=== PATIENT | female | born 1945 | race Caucasian/White ===

== ENCOUNTER → 2017-04-05 | Outpatient (CLI) | payer MEDICARE, OTHER ==
[~2017-04-05] MED LIST: ALLEGRA PO; ALLEGRA180 MG PO; ASPIRIN PO; ATENOLOL PO; ATENOLOL25 MG PO; ATIVAN0.5 M1 PO; CALCIUM 500 +1 EAC2 PO; CALCIUM500 MG PO; CIPRO PO; COD LIVER OIL1 CAP; DOC-Q-LACE100 MG PO; DULERA 100 MCG/13 GM IH; FLONASE ALLERG9.9 ML; FLONASE16 GM; IRON; KEFLEX500 M1 PO; LIDODERM30 EA TOP; LODINE PO; LORTAB 10-3251 EACH PO; LORTAB 101 TAB 10/5 PO; LORTAB 7.5-5001 TAB PO; LOW DOSE ASPIRI81 M1 PO; MULTI VITAMIN1 EACH PO; MULTI-VITAMIN1 TAB PO; NEXIUM PO; OYSTER CALCIUM500 MG PO; PRAVASTATIN SOD40 MG PO; PROAIR HFA8.5 GM INH; PYRIDOXINE; SENOKOT S1 TA1 PO; THERALITH XR T1 EACH PO; TUDORZA PRESS400 MCG IH; VIT E PO; VITAMIN D350000 UNIT PO; VITAMIN E400 UNI5 PO; ZYRTEC10 M2 PO
--- NOTE | ~2017-04-05 | BD1 ---
[facility] A Service of [facility] RADIOLOGY TEXT RESULTS PATIENT: BUZZ POOL LOCATION: [facility] : [birth year] UNIT #: [id number] AGE: [address]: Layne Mascorro MD SEX: F ORDER DR: [id number] [facility] [address] [place], [place] [address] [id number] O MR#: [id number] Acc #: [id number] NAME: BUZZ POOL : 1945 SEX: F STUDY DATE/TIME: 04/05/2017 10:09 UNIT: [facility] ROOM: STUDY DESCRIPTION: BD Dexa Bone Dens 1+ Site Attending Physician: Layne Mascorro M.D. Referring Physician: Layne Mascorro M.D. Ordering Physician: Layne Mascorro M.D. Primary Care Physician: Layne Mascorro M.D. MEDICAL IMAGING REPORT This report is preliminary unless electronic signature is present EXAM DXA scan 04/05/2017 HISTORY Status post menopause with no hormone replacement therapy. Osteopenia. Hysterectomy with removal of both ovaries. Arthritis. Smoking history for 35 years. FINDINGS Bone mineral density in the lumbar spine from L1-L4 was 1.256 g/cm2 which is 1.9 standard deviations above the mean when compared to the young adult reference population which is within the range of normal. This is 4 standard deviations above the mean when compared to the age-matched population. Bone mineral density in the left hip was 0.845 g/cm2 which is 0.8 standard deviations below the mean when compared to the young adult reference population which is within the range of normal. This is 0.7 standard deviations above the mean when compared to the age-matched population. IMPRESSION Bone mineral density in the lumbar spine and the left hip within the range of normal. Dictated by... Leonardo Jacobsen M.D. THIS IS AN ELECTRONICALLY VERIFIED REPORT Leonardo Jacobsen M.D. at 04/06/2017 2:36 PM AUBREY/christopher TD: 04/05/2017 15:39 JOB #: [id number] [facility] A Service of [facility] RADIOLOGY TEXT RESULTS PATIENT: BUZZ POOL LOCATION: [facility] : [birth year] UNIT #: [id number] AGE: [address]: Layne Mascorro MD SEX: F ORDER DR: MEDICAL IMAGING REPORT Page 1 of 1 COPY
--- NOTE | ~2017-04-05 | MY29 ---
[facility] A Service of [facility] RADIOLOGY TEXT RESULTS PATIENT: BUZZ POOL LOCATION: [facility] : 49 UNIT #: [id number] AGE: [address]: Layne Mascorro MD SEX: F ORDER DR: [id number] [facility] [address] [place], [place] [address] [id number] O MR#: [id number] Acc #: [id number] NAME: BUZZ POOL : 1945 SEX: F STUDY DATE/TIME: 04/05/2017 10:05 UNIT: [facility] ROOM: STUDY DESCRIPTION: MY SHANNA SCREENING W/ CAD BILAT Attending Physician: Layne Mascorro M.D. Referring Physician: Layne Mascorro M.D. Ordering Physician: Lyane Mascorro M.D. Primary Care Physician: Layne Mascorro M.D. MEDICAL IMAGING REPORT This report is preliminary unless electronic signature is present EXAM Bilateral digital screening mammogram with CAD device 04/05/2017. HISTORY Routine screening. FINDINGS Digital imaging of each breast was completed utilizing a two-view examination of each breast in craniocaudal and mediolateral-oblique projections. Review and interpretation of digital mammograms include a second review in conjunction with FDA-approved CAD device. There is a normal parenchymal presentation bilaterally consistent with the patient's age. There are no breast masses imaged and no parenchymal asymmetry is visualized. There are no suspicious microcalcifications and I see no focal architectural disturbance. IMPRESSION Negative screening digital mammogram. One-year followup recommended. Patients over the age of 40 are entered into a reminder system with target due date for the next mammogram. A result letter will also be sent to the patient. BIRADS: 1 Negative Dictated by... Leonardo Jacobsen M.D. THIS IS AN ELECTRONICALLY VERIFIED REPORT Leonardo Jacobsen M.D. at 04/06/2017 2:37 PM KRT/gz [facility] A Service of [facility] RADIOLOGY TEXT RESULTS PATIENT: BUZZ POOL LOCATION: [facility] : 49 UNIT #: [id number] AGE: [address]: Layne Mascorro MD SEX: F ORDER DR: TD: 04/05/2017 15:30 JOB #: [id number] MEDICAL IMAGING REPORT Page 1 of 1 COPY
== END | disposition home or self-care (01) ==
LOC: CWCC 09:30
DX: Z12.31 Encounter for screening mammogram for malignant neoplasm of breast (principal); M81.0 Age-related osteoporosis without current pathological fracture
CPT/HCPCS: 77080; G0202